=== PATIENT | female | born 1990 | race Caucasian/White ===

== ENCOUNTER 2016-09-22 06:15 | Emergency (ER) | payer OTHER | END 2016-09-22 07:18 | disposition home or self-care (01) | LOC: FER 06:15 | DX: M54.12 Radiculopathy, cervical region (principal) | CPT/HCPCS: 72050; J1885 ==

== ENCOUNTER 2016-12-21 09:52 | Emergency (ER) | payer OTHER | END 2016-12-21 13:44 | disposition home or self-care (01) | LOC: FER 09:52 | DX: G43.909 Migraine, unspecified, not intractable, without status migrainosus (principal); F17.210 Nicotine dependence, cigarettes, uncomplicated | CPT/HCPCS: 96372; J1885; J2060; J2405; J2765; J3030 ==

== ENCOUNTER 2020-07-19 13:52 | Emergency (ER) | payer OTHER ==
[~2020-07-19 13:52] MED LIST: KETOROLAC TROME10 MG PO
== END 2020-07-19 15:36 | disposition home or self-care (01) ==
LOC: FER 13:52
DX: S93.402A Sprain of unspecified ligament of left ankle, initial encounter (principal); X50.1XXA Overexertion from prolonged static or awkward postures, initial encounter; Y93.01 Activity, walking, marching and hiking
CPT/HCPCS: 73610

== ENCOUNTER 2020-08-03 01:35 | Emergency (ER) | payer OTHER ==
[2020-08-03] MEDS ORDERED: NORCO 5-325 TA1 EACH PO (04:01)
== END 2020-08-03 04:32 | disposition home or self-care (01) ==
LOC: FER 01:35
DX: K08.89 Other specified disorders of teeth and supporting structures (principal); Z87.442 Personal history of urinary calculi
CPT/HCPCS: 99283; Q0163

== ENCOUNTER 2021-05-30 19:02 | Emergency (ER) | payer SELFPAY ==
[~2021-05-30 19:02] MED LIST changes: +NORCO 5-325 TA1 EACH PO
[2021-05-30 20:15] LABS: BASOPHIL 0.4 % (0-2); EOSINOPHIL 6.8 % (0-5); LYMPHOCYTE 33.3 % (15-48); MCH 30.6 pg (25.0-31.0); MCHC 33.3 g/dL (32.0-36.0); MCV 91.8 fL (78.0-100.0); MPV 9.3 fL (6.0-9.5); NEUTROPHIL 51.2 % (41-80); NRBC 0; PLT 257 K/uL (150-400); RBC 4.25 M/uL (4.20-5.40); RDW 12.1 % (11.5-14.0)
[2021-05-30 20:35] LABS: ALBUMIN 3.6 g/dL (3.4-5.0); BILIRUBIN - TOTAL 0.3 mg/dL (0.2-1.0); BUN/CREAT RATIO (CALC) 26.5 RATIO; CREATININE 0.68 mg/dL (0.51-0.95); GLOBULIN (CALCULATION) 3.4 g/dL; POTASSIUM 3.7 mmol/L (3.5-5.1)
== END 2021-05-30 21:55 | disposition home or self-care (01) ==
LOC: FER 19:02
PROVIDERS: Emergency Medicine
DX: R07.89 Other chest pain (principal); F17.290 Nicotine dependence, other tobacco product, uncomplicated; Z20.822 Contact with and (suspected) exposure to COVID-19
CPT/HCPCS: 36415; 71045; 80053; 84484; 85025; 85379; 93005; J1885; U0002

== ENCOUNTER 2021-10-20 02:29 | Emergency (ER) | payer OTHER ==
[~2021-10-20 02:29] MED LIST changes: +METRONIDAZOLE500 MG PO
[2021-10-20 03:17] LABS: BASOPHIL 0.5 % (0-2); EOSINOPHIL 3.3 % (0-5); HCT 37.5 % (37.0-47.0); HGB 12.7 g/dl (12.5-16.0); LYMPHOCYTE 17.4 % (15-48); MCHC 33.9 g/dL (32.0-36.0); MCV 91.5 fL (78.0-100.0); MONOCYTE 7.8 % (0-12); MPV 9.4 fL (6.0-9.5); NEUTROPHIL 69.9 % (41-80); NRBC 0; PLT 220 K/uL (150-400); RDW 11.8 % (11.5-14.0); WBC 10.8 K/uL (4.0-10.5)
[2021-10-20 03:23] LABS: ALBUMIN 3.9 g/dL (3.4-5.0); BILIRUBIN - TOTAL 0.3 mg/dL (0.2-1.0); BUN/CREAT RATIO (CALC) 32.1 RATIO; CREATININE 0.56 mg/dL (0.51-0.95); GLOBULIN (CALCULATION) 3.3 g/dL; POTASSIUM 3.7 mmol/L (3.5-5.1); TOTAL PROTEIN 7.2 g/dL (6.4-8.2)
[2021-10-20 05:25] LABS: BILIRUBIN NEGATIVE (NEGATIVE); BLOOD 3+ Ery/uL (NEGATIVE); CLARITY HAZY (CLEAR); COLOR YELLOW (YELLOW); GLUCOSE (U) NORMAL (NORMAL); LEUKOCYTES NEGATIVE Leu/uL (NEGATIVE); NITRITE NEGATIVE (NEGATIVE); PROTEIN NEGATIVE (NEGATIVE); SPECIFIC GRAVITY 1.025 (1.001-1.030); UROBILINOGEN 0.2 mg/dL (0.2-1.0); pH 5.5 (5.0-9.0)
[2021-10-20 05:33] LABS: BACTERIA 1+; MUCOUS TRACE; URINARY RBC 20-50
[2021-10-20] MEDS ORDERED: ONDANSETRON ODT4 MG PO (08:50)
[2021-10-20] MEDS ORDERED: NORCO 5-325 TA1 EACH PO (08:50)
[2021-10-20] MEDS ORDERED: KEFLEX250 MG PO (08:50)
[2021-10-20] MEDS ORDERED: PHENERGAN25 M1 PO (10:20)
[2021-10-20] MEDS ORDERED: DIFLUCAN150 MG PO (10:20)
== END 2021-10-20 09:50 | disposition home or self-care (01) ==
LOC: FER 02:29
PROVIDERS: Internal Medicine
DX: N93.9 Abnormal uterine and vaginal bleeding, unspecified (principal)
CPT/HCPCS: 36415; 76817; 80053; 81001; 83690; 84702; 85025; 87088; J1170; J1885; J2550; J7030